=== PATIENT | female | born 1955 | race Caucasian/White ===

== ENCOUNTER 2022-08-19 12:37 | Outpatient (CLI) | payer OTHER, SELFPAY ==
--- NOTE | ~2022-08-19 | XR_ITS ---
EXAMINATION: XR chest 2V 08/19/2022 14:25 INDICATION: COPD exacerbation PROCEDURE: 2 view chest COMPARISON: No prior studies for comparison. FINDINGS: The lungs are clear. The cardiomediastinal silhouette is within normal limits. There are no pleural effusions. There is no pneumothorax suspected. There is moderate lower thoracic spondylo sis with accentuated kyphosis. IMPRESSION: 1: NO ACUTE CARDIOPULMONARY DISEASE. Reviewed, dictated and finalized at location A.
--- NOTE | ~2022-08-19 | XR_ITS ---
EXAMINATION: XR lumbar spine min 4V DATE: 08/19/2022 14:25 INDICATION: Chronic low back pain. TECHNIQUE: 5 views of lumbar spine were obtained. COMPARISON: None. FINDINGS: There is 10 degrees levoscoliosis of lumbar spine. There is 4 mm retrolisthesis of L2 on L3 . Vertebral body heights are normal. There is severely decreased disc height at L1-L2 and L2-L3. Ther e is multilevel mild to moderate facet joint osteoarthritis. IMPRESSION: 1. Severe lumbar spondylosis. 2. Lumbar levoscoliosis. Reviewed, dictated and finalized at location B.
[2022-08-19 14:28] LABS: Basophils Percent Auto 0.4 % (0.2-1.2); Eosinophils Absolute Auto 0.1 K/mm3 (0-0.3); Hematocrit 45.9 % (37.0-47.0); Hemoglobin 15.2 g/dL (12.0-15.0); Immature Granulocyte Absolute 0.03 K/mm3 (0.00-0.031); Immature Granulocyte Percent A 0.3 % (0-0.5); Lymphocytes Absolute Auto 2.65 K/mm3 (0.9-3.2); Lymphocytes Percent Auto 29.4 % (18.3-44.2); Mean Corpuscular HGB Conc 33.1 g/dl (32-36); Mean Corpuscular Hemoglobin 29.3 pg (26-34); Mean Corpuscular Volume 88.4 fl (80-100); Mean Platelet Volume 9.4 fl (7.4-10.4); Monocytes Absolute Auto 0.4 K/mm3 (0.1-0.6); Monocytes Percent Auto 4.3 % (2.6-8.5); Neutrophils Absolute Auto 5.8 K/mm3 (1.3-6.7); Neutrophils Percent Auto 64.6 % (45.5-73.1); Platelet Count Result 323 k/mm3 (150-375); Red Blood Count 5.19 M/mm3 (4.2-5.4); Red Cell Distribution Width 12.7 % (11.5-14.5)
[2022-08-19 14:47] LABS: Alanine Aminotransferase 10 U/L (6-35); Alkaline Phosphatase 97 U/L (38-126); Anion Gap 13 mmol/L (8-16); Aspartate Amino Transferase 23 U/L (14-36); Bilirubin,Total 0.5 mg/dL (0.2-1.3); Blood Urea Nitrogen 8 mg/dL (7-17); Calcium 10.1 mg/dL (8.4-10.2); Carbon Dioxide 30 mmol/L (22-30); Chloride 99 mmol/L (98-107); Cholesterol 232 mg/dL (0-200); Estimated Glomerular Filt Rate 50; Glucose 115 mg/dL (65-110); HDL Direct 52 mg/dL; Phosphorus 4.1 mg/dL (2.5-4.5); Potassium 3.9 mmol/L (3.4-5.0); Sodium 142 mmol/L (137-145); Triglycerides 312 mg/dL (<150)
[2022-08-19 14:58] LABS: LDL Cholesterol Direct 103 mg/dL
[2022-08-19 15:11] LABS: Free T4 Free Thyroxine 1.05 ng/mL (0.78-2.19); Vitamin D 25 Hydroxy 46.7 ng/mL
--- NOTE | 2022-08-19 15:45 | WPDPFTINT ---
PFT Procedure Performed PFT Procedure Performed Plethysmography (Lung Vol) Diffusing Cap (DLCO) Flow Vol Loop Spirometry w/o Bronchodil PFT Interpretation This is a pulmonary function test with spirometry, plethysmography and diffusing capacity. The test was performed and results interpreted in accordance with the 2019 and 2005 ATS/ERS Task Force guidelines respectively using the Global Lung Function Initiative-2012 reference equations. Patient demonstrated good effort and cooperation. Reproducibility criteria were met. The quality of the spirometry maneuver was Grade A. Findings: Spirometry: There is decreased maximal expiratory airflow at all lung volumes with concave expiratory flow tracing. The contour the inspiratory flow tracing is normal. The FVC is 2.03 L, 81% predicted. The FEV1 is 1.26 L, 64% predicted. The FEV1: FVC ratio is 62%. Plethysmography: The total lung capacity is 5.61 L, 130% predicted. The functional residual capacity is 3.97 L, 163% predicted. The residual volume is 3.57 L, 194% predicted. Diffusing capacity: The diffusing capacity unadjusted for hemoglobin and carboxyhemoglobin is 12.7, 67% predicted. The diffusing capacity adjusted for alveolar volume is 3.84, 84% predicted. Impression: There is a modeerate obstructive abnormality. The increase in residual volume is consistent with air trapping from an obstructive abnormality. Hyperinflation is present as demonstrated by the increase in functional residual capacity and total lung capacity and is consistent with an obstructive abnormality. The diffusing capacity is normal. There are no prior studies for comparison
== END 2022-08-19 12:38 | disposition home or self-care (01) ==
PROVIDERS: PCP Internal Medicine; Visit Provider Internal Medicine
DX: J44.9 Chronic obstructive pulmonary disease, unspecified (principal); E78.5 Hyperlipidemia, unspecified; E55.9 Vitamin D deficiency, unspecified; M47.896 Other spondylosis, lumbar region; R94.2 Abnormal results of pulmonary function studies
CPT/HCPCS: 36415; 71046; 72110; 80061; 80069; 80076; 82306; 84439; 84443; 85025; 94375; 94726; 94729

== ENCOUNTER 2022-08-29 09:54 | Outpatient (CLI) | payer OTHER, SELFPAY ==
--- NOTE | 2022-08-29 | EST_ITS ---
Patient Info Name: Adriane Bermudez Age: 67 years : 1955 Gender: Female Ht: 51 in Wt: 135 lbs BSA: 1.53 m2 HR: 59 bpm BP: 188 / 75 mmHg Heart Rhythm: Sinus Rhythm Exam Date: 08/29/2022 11:27 AM Exam Location: [facility] Stress Patient Status: Outpatient Admit Date: 08/29/2022 Staff Ordering Physician: Abhi Ramos MD Attending Provider: Abhi Ramos MD Exercise Technologist: Caterina Serra, CT Nurse: YOSEF CRAIG Exam Type: CA stress josh w NM Study Info Indications R07.89 - Other chest pain A regadenoson stress test was performed. Summary 1. Sinus rhythm with left axis deviation and poor R-wave progression. 2. No changes noted following Lexiscan injection. 3. Clinically and electrocardiographically unremarkable Lexiscan stress test. 4. Myocardial perfusion imaging study to be dictated by the Radiology Department. Protocol: Lexiscan Stress ECG Details Stage: REST Duration (min): 2 min : 17 sec HR (bpm): 63 SBP (mmHg): 188 DBP (mmHg): 75 Stage: REST Duration (min): 10 min : 27 sec HR (bpm): 62 SBP (mmHg): 188 DBP (mmHg): 75 Stage: STAGE 1 Duration (min): 0 min : 59 sec HR (bpm): 78 SBP (mmHg): 188 DBP (mmHg): 75 Stage: RECOVERY Duration (min): 1 min : 0 sec HR (bpm): 99 SBP (mmHg): 203 DBP (mmHg): 79 Stage: RECOVERY Duration (min): 2 min : 0 sec HR (bpm): 93 SBP (mmHg): 203 DBP (mmHg): 79 Stage: RECOVERY Duration (min): 3 min : 0 sec HR (bpm): 92 SBP (mmHg): 180 DBP (mmHg): 85 Stage: RECOVERY Duration (min): 3 min : 40 sec HR (bpm): 85 SBP (mmHg): 180 DBP (mmHg): 85 Rest HR: 62 bpm Peak HR: 102 bpm Rest Sys BP: 188 mmHg Peak Sys BP: 203 mmHg Max Pred HR: 155 bpm % Max Pred HR: 66 % Target HR: 132 bpm Max RPP: 20,706 bpm*mmHg Total Time: 1 min : 0 sec Rest Emerson BP: 75 mmHg Peak Emerson BP: 79 mmHg Total Dose: 0.4 mg Resting ECG Sinus rhythm with left axis deviation and poor R-wave progression. Stress ECG No changes noted following Lexiscan injection. Report Signatures
--- NOTE | ~2022-08-29 | NM_ITS ---
EXAMINATION: NM josh stress w perfusion DATE: 08/29/2022 12:57 INDICATION: Chest pain TECHNIQUE: Rest images were obtained following intravenous administration of 9.6 mCi Tc99m tetrofosmi n (Myoview). The patient was infused intravenously with Lexiscan (Regadenoson). Then, 29.6 mCi Tc99m tetrofosmin (Myoview) was administered intravenously, and stress images were obtained. Data was recon structed into short axis and horizontal and vertical long axis SPECT images. Gated SPECT images were also obtained. COMPARISON: None. FINDINGS: There is no definite reversible or fixed perfusion abnormality to suggest ischemia or infar ction. There is normal left ventricular chamber size, wall motion and ejection fraction. Left ventr icular ejection fraction measures >70%. IMPRESSION: 1. Normal myocardial perfusion at rest and during stress. 2. Left ventricular ejection fraction measuring >70%. Reviewed, dictated and finalized at location A.
== END 2022-08-29 09:55 | disposition home or self-care (01) ==
PROVIDERS: PCP Internal Medicine; Visit Provider Internal Medicine
DX: R07.9 Chest pain, unspecified (principal)
CPT/HCPCS: 78452; 93017; A9502; J2785

== ENCOUNTER 2022-08-30 20:24 | Inpatient (IN) | payer OTHER, SELFPAY ==
[2022-08-30] VITALS (7 sets, daily range): BP systolic 113–148; BP diastolic 59–88; PULSE 63–74; RESP 16–20; TEMP 36.6; O2SAT 93–100; BMI 25.9
--- NOTE | ~2022-08-30 | XR_ITS ---
EXAMINATION: XR chest 2V Exam Date/Time: 08/30/2022 20:52 CDT HISTORY: MIDLINE chest pain, COLD SWEATS Comparison: 08/19/2022. RESULT: Lines, tubes, and devices: None. Lungs and pleura: Clear. Cardiomediastinal silhouette: Stable. Other: No acute osseous or upper abdominal finding. IMPRESSION: No acute cardiopulmonary process. Reviewed, dictated and finalized at location K.
--- NOTE | 2022-08-30 20:28 | ECG_ITS ---
Measurements Intervals [place] Rate: 58 P: 63 CO: 177 QRS: -45 QRSD: 100 T: -40 QT: 466 QTc: 460 Interpretive Statements SINUS BRADYCARDIA POSSIBLE LEFT ATRIAL ENLARGEMENT [-0.1mV P WAVE IN V1/V2] LEFT ANTERIOR FASCICULAR BLOCK [QRS AXIS <= -45, QR IN I, RS IN II] POSSIBLE LEFT VENTRICULAR HYPERTROPHY [VOLTAGE CRITERIA PLUS LAE OR QRS WIDENING] MINIMAL ST DEPRESSION [0.025+ mV ST DEPRESSION] INFERIOR T-WAVE ABNORMALITY, CONSISTENT WITH ISCHEMIA ABNORMAL ECG NO PREVIOUS ECG AVAILABLE FOR COMPARISON Electronically Signed On 08-31-2022 10:19:52 CDT by Beau Sanchez M.D.
[2022-08-30 20:52] LABS: Basophils Percent Auto 0.5 % (0.2-1.2); Eosinophils Absolute Auto 0.1 K/mm3 (0-0.3); Hematocrit 38.6 % (37.0-47.0); Hemoglobin 12.7 g/dL (12.0-15.0); Immature Granulocyte Absolute 0.04 K/mm3 (0.00-0.031); Immature Granulocyte Percent A 0.5 % (0-0.5); Lymphocytes Percent Auto 25.2 % (18.3-44.2); Mean Corpuscular HGB Conc 32.9 g/dl (32-36); Mean Corpuscular Volume 91.3 fl (80-100); Mean Platelet Volume 9.4 fl (7.4-10.4); Monocytes Absolute Auto 0.5 K/mm3 (0.1-0.6); Monocytes Percent Auto 5.8 % (2.6-8.5); Neutrophils Absolute Auto 5.9 K/mm3 (1.3-6.7); Platelet Count Result 232 k/mm3 (150-375); Red Blood Count 4.23 M/mm3 (4.2-5.4); Red Cell Distribution Width 13.4 % (11.5-14.5); White Blood Count 8.7 K/mm3 (4.5-10.0)
--- NOTE | 2022-08-30 20:56 | ED.CHESTPAIN ---
HPI - Chest Pain General Chief Complaint: Chest Pain Stated Complaint: CP S/P TAKING MUCINEX Time Seen by Provider: 08/30/22 20:36 History of Present Illness HPI narrative: This is a 67-year-old female with past medical history of COPD and hyperlipidemia who was brought in by EMS with complaints of chest pain. The patient states approximately 2 hours prior to arrival, she was lying down, took a tablet of Mucinex and felt almost immediate onset pressure-like substernal chest pain lasting for about an hour and 45 minutes, associated with nausea. Patient states she has not felt the pain like this before. She denies aggravating or alleviating factors. She states the pain has now completely resolved. She states she underwent a stress test yesterday but is not sure of the results she has no other complaints today Related Data Home Medications Medication Instructions Recorded Confirmed fluoxetine 20 mg capsule mg 08/30/22 fluticasone 250 mcg-salmeterol 50 inhalation 08/30/22 mcg/dose blistr powdr for inhalation (Advair Diskus) glipizide 5 mg tablet mg 08/30/22 glipizide 5 mg tablet mg 08/30/22 hydroxyzine HCl 25 mg tablet mg 08/30/22 lamotrigine 150 mg tablet mg 08/30/22 trazodone 100 mg tablet mg 08/30/22 valbenazine 40 mg capsule mg 08/30/22 (Ingrezza) Allergies Allergy/AdvReac Type Severity Reaction Status Date / Time No Known Allergies Allergy Verified 08/30/22 20:47 Review of Systems Review of Systems: CONSTITUTIONAL: Denies fever, chills, or sweats. EYES: Denies visual changes, redness, or discharge. ENT: Denies rhinorrhea, congestion, sore throat, or otalgia. CARDIOVASCULAR: Chest pain (now resolved) denies palpitations, or edema. RESPIRATORY: Denies cough or dyspnea. GASTROINTESTINAL: Denies abdominal pain, nausea, vomiting, or diarrhea. GENITOURINARY: Denies dysuria or hematuria. SKIN: Denies rash or itching. MUSCULOSKELETAL: Denies back pain, joint pain, or myalgia. NEUROLOGIC: Denies headache, numbness, dizziness, or weakness. PSYCHIATRIC: Denies anxiety or depression. [facility] Past Medical History Medical History (Updated 08/30/22 @ 23:27 by Lionel Kearnye MD) COPD (chronic obstructive pulmonary disease) Hyperlipidemia Social History Social History (Updated 08/30/22 @ 23:26 by Lionel Kearney MD) Smoking status: Current every day smoker Alcohol intake: never Substance use: never Exam Narrative: GENERAL: Well-appearing, well-nourished, and in no acute distress. HEAD: Normocephalic, atraumatic. EYES: PERRLA and EOMI. ENT: Nares clear, no rhinorrhea or epistaxis. Mucous membranes moist. Oropharynx without tonsillar hypertrophy exudate or other lesions. Bilateral TMs pearly quintanilla nonbulging NECK: Supple. No adenopathy or masses. No carotid bruits or JVD CHEST: Bilateral expiratory wheeze with good aeration. No respiratory distress. No rales or rhonchi HEART: Regular rate and rhythm. No murmur heard. Normal peripheral pulses. ABDOMEN: Soft, nontender, nondistended, normal active bowel sounds. EXTREMITIES: Normal range of motion. No edema. SKIN: Warm, dry, no rash. NEURO: No focal deficits. Alert and oriented x3. PSYCH: Normal mood and affect. Course Course Emergency Course: 21:00 - On review of documentation, the patient underwent a Lexiscan stress test yesterday without ischemic changes. 21:30 - Troponin elevated to 0.229. Chemistries otherwise demonstrated creatinine of 1.3 with a baseline of 1.1. Chest x-ray unremarkable. 21:35 - Discussed patient with Dr. Haro (chainsaw mechanic) who advises treatment with 1mg/kg Lovenox, keep NPO overnight with plan to evaluate in the morning and potentially take to the clinical laboratory aide. 22:05 - Discussed with Dr. Cruz who accepts admission. Vital Signs Vital signs: Vital Signs Temperature 97.8 F 08/30/22 20:28 Pulse Rate 65 08/30/22 20:28 Respiratory Rate 18 08/30/22 20:28 Blood Pressure 148/88 H 08/30/22 20:28 Puls
[2022-08-30 21:02] LABS: Alanine Aminotransferase 12 U/L (6-35); Albumin Level 4.2 g/dL (3.5-5.1); Alkaline Phosphatase 86 U/L (38-126); Anion Gap 10 mmol/L (8-16); Aspartate Amino Transferase 25 U/L (14-36); Bilirubin,Total 0.5 mg/dL (0.2-1.3); Blood Urea Nitrogen 11 mg/dL (7-17); Calcium 8.8 mg/dL (8.4-10.2); Carbon Dioxide 26 mmol/L (22-30); Chloride 102 mmol/L (98-107); Estimated Glomerular Filt Rate 41; Glucose 132 mg/dL (65-110); Lipase 120 U/L (23-300); Potassium 3.4 mmol/L (3.4-5.0); Sodium 138 mmol/L (137-145)
[2022-08-30 21:05] LABS: INR 1.1; Prothrombin Time 13.3 Seconds (11.1-14.7)
[2022-08-30 21:06] LABS: Partial Thromboplastin Time 29.1 SECONDS (22.3-36.8)
[2022-08-30] MEDS: ALBUTEROL SULFATE NEB 2.5 MG/3 ML INH 5 MG INHALATION (21:14)
[2022-08-30 21:19] LABS: Troponin I 0.229 ng/mL (0.000-0.034)
[2022-08-30 21:34] LABS: SARS-CoV-2 RNA PCR Negative
[2022-08-30] MEDS: ENOXAPARIN 80 MG/0.8 ML SYRINGE 66 MG SUB-Q (22:27)
[2022-08-31] VITALS (44 sets, daily range): BP systolic 134–194; BP diastolic 55–108; PULSE 43–81; RESP 15–26; TEMP 35.8–37; O2SAT 94–100
--- NOTE | 2022-08-31 00:32 | ADMGEN ---
This patient, Adriane Bermudez, was admitted to IMU Room 201-01 08/31/22 at 0005. Patient/family oriented to hospital policies and general routines including ID bracelet, bed and alarms, visiting hours, pain management, procedures, bathroom and other care routines, personal items, smoking policy, room service/diet, and visiting hours. Information on how to activate the Rapid Response Team has been discussed. Patient/Family are encouraged to report perceived risks to care and to ask questions if they do not understand what they are told or what they should do.
[2022-08-31 00:58] LABS: Troponin I 0.367 ng/mL (0.000-0.034)
[2022-08-31 03:07] LABS: Troponin I 0.675 ng/mL (0.000-0.034)
--- NOTE | 2022-08-31 04:17 | PM.IMHP ---
H&P: HPI History of Present Illness Date/Time: 08/31/22 02:30 Chief Complaint: Chest pain Narrative: 67-year-old female with past medical history of bipolar disorder, type 2 diabetes mellitus, hypertension, chronic kidney disease stage 3, chronic tobacco use and coronary artery disease status post 2 prior cardiac catheterizations with 2 separate stents placed who presented to the ER with chest pain. Patient reports that she is being evaluated as outpatient due to persistent cough and shortness of breath for the last 6 months. She had PFTs as outpatient which demonstrated moderate obstructive disease in July. She had a Lexiscan stress test performed 08/29/2022 that was negative for evidence of ischemia. On 08/30/2022, she reports that she was having difficulty with coughing and chest congestion so she took a Mucinex. Shortly thereafter while she was watching TV she began having mid chest pain. She reports that the pain was pressure-like in nature and substernal. It radiated to her back and up to her left jaw. It was a come by some nausea but no vomiting. It lasted 1-2 hours. It was associated with diaphoresis and nausea. She reported that pain was partially relieved with nitro given by EMS and was completely relieved after nitropaste was placed. She also reports associated increased fatigue for the last week. She reports having some episodes of paroxysmal nocturnal dyspnea this week as well but denies significant orthopnea. Does have a history of coronary artery disease and had cardiac stents placed at [facility] during 2 separate cardiac catheterizations over 10 years ago. She states that those stents were placed due to positive stress test in that she has never actually had chest pain or non-STEMI previously. She has never had pain like this before. She has not had any recent fevers or chills. she does not take any aspirin. She is not on blood thinners. She reports that her hemoglobin A1c was 7 at her last lab check with her primary care physician. Review of Systems Review of Systems: 12 systems were reviewed with pertinent positives and negatives per HPI. Except as documented in the HPI, all other systems were reviewed and are negative. [facility] Past Medical History Medical History (Updated 08/31/22 @ 05:40 by Roslyn Cruz DO) Anxiety Bipolar disorder (manic depression) Chronic kidney disease, stage 3b Associated with diabetes Continuous tobacco abuse COPD (chronic obstructive pulmonary disease) PFT 08/2022: Moderate obstructive abnormality with evidence of air trapping Coronary artery disease Diabetic peripheral neuropathy Diverticulitis Fibromyalgia Gout Hyperlipidemia Scoliosis Type 2 diabetes mellitus Vitamin D deficiency Surgical History Surgical History (Updated 08/31/22 @ 05:27 by Roslyn Cruz DO) History of appendectomy History of colonoscopy with polypectomy History of hysterectomy for cancer At age 20 for ovarian cancer History of tonsillectomy Family History Family History (Updated 08/31/22 @ 05:30 by Roslyn Cruz DO) Mother Lung cancer Father , At age 78 Acute myocardial infarction, Onset Age: 38 Sibling Intracranial aneurysm Sibling , Age 54 Acute myocardial infarction Social History Social History (Updated 08/31/22 @ 05:33 by Roslyn Cruz DO) Social History: She is currently from her spouse and lives alone. 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 she has 1 biologic daughter and 4 step children. She has smoked as much as 3 packs of cigarettes per day but has cut back to 1.5 packs per day for the last 3 months. She smokes marijuana nightly. She denies any alcohol use. Code status: Full code Primary care physician: Dr. Abhi Ramos Smoking packs per day: 3 Smoking cigarettes per day: 60.0 Years smoked: 56 Smoking pack-years: 168.00 Smoking status: Current every day smoker Tobacco type: cig
--- NOTE | 2022-08-31 08:42 | PM.CNCAR ---
Assessment and Plan Assessment and plan (1) Non-STEMI (non-ST elevated myocardial infarction): Code(s): I21.4 - Non-ST elevation (NSTEMI) myocardial infarction Status: Acute Plan This is a 67-year-old lady with smoking dyslipidemia and a previous history of coronary stenting, presents to the hospital with some chest pain last evening that resolved in a self-limited fashion. She has had a modest troponin rise and inferior T-wave inversions. We appear to have the diagnosis of acute coronary syndrome. I will recommend follow-up coronary angiography and will anticipate performing that procedure later this morning. Further recommendations are will be pending completion of that exam. Jorgito Pfeiffer MD [facility] History of Present Illness History of Present Illness Consult date/time: 08/31/22 08:42 Reason For Visit: Chest Pain Narrative: This is a 67-year-old woman who I am seeing at the request of the hospitalist this morning because of chest pain and evidence indicating of as acute coronary syndrome. The patient is unknown to me prior to this encounter and is not really been admitted [facility] in the past that I can tell. In any event she was in her home last evening simply sitting in a chair when she started to experience some chest pain she describes it as a dull aching then followed by a pressure-like sensation in the center of the chest that radiated up into her neck area. The symptom was accommodated by some shortness of breath and nausea. She states she sat down to relax and laid back in the symptoms persisted after about 20-30 minutes she called EMS or her at least her and I believe she was brought to the emergency room here at [facility] at her request even though she lives in [place]. The patient was seen in the emergency room evaluated and admitted to IMU. She has modestly elevated troponin levels. Her electrocardiogram did not show any acute current of injury however she does have some inferior T-wave inversions. We have no old ECGs here at [place] for comparison. In any event she feels well this morning and denies any complaints. She appears to have a history of coronary artery disease she states that she was cared for by wine manager in the hospital [place] about 10 years ago and underwent angiography and stenting of 2 her coronary arteries. We have none of those records. For some reason she states no follow-up with the wine manager was performed after that intervention. Presumably she did not show up for appointments or something like that. In any event she follows with a local PCP for her primary care she has a history of diabetes dyslipidemia and history of COPD with longstanding/ongoing cigarette smoking. She takes atorvastatin and no other medications that are untreated pertinent to her coronary artery disease. Review of Systems Constitutional: Constitutional: Reports no additional constitutional complaints Eyes: Eyes: Reports no additional eye complaints ENT: Reports system reviewed and no additional complaints, except as documented Cardiovascular: Cardiovascular: Reports as per HPI Respiratory: Respiratory: Reports dyspnea on exertion Gastrointestinal: Gastrointestinal: Reports no additional gastrointestinal complaints Musculoskeletal: Musculoskeletal: Reports back pain Integumentary/Breasts: Skin/Breast: Reports system reviewed and no additional complaints, except as docu Endocrine: Endocrine: Reports no additional endocrine complaints Hematologic/Lymphatic: Hematologic/Lymphatic: Reports no additional hematologic/lymphatic complaints Allergic/Immunologic: Allergic/Immunologic: Reports no additional allergic/immunologic complaints [facility] Past Medical History Medical History (Updated 08/31/22 @ 05:40 by Roslyn Cruz DO) Anxiety Bipolar disorder (manic depression) Chronic kidney disease, stage 3b Associated with diabetes 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
--- NOTE | 2022-08-31 08:48 | WPDMODSED ---
Moderate Sedation Note-Pt Data Patient Data Diagnosis: Acute coronary syndrome Coronary artery disease with previous PCI Dyslipidemia Ongoing smoking Diabetes Present Complaint: No complaints this morning Procedure to be performed/Plan: Left heart catheterization Allergies Allergy/AdvReac Type Severity Reaction Status Date / Time No Known Allergies Allergy Verified 08/30/22 20:47 Home Medications Medication Instructions Recorded Confirmed Type fluoxetine 20 mg capsule 20 mg PO DAILY 08/30/22 08/31/22 History fluticasone 250 mcg-salmeterol 50 1 inh inhalation Q12H 08/30/22 08/31/22 History mcg/dose blistr powdr for inhalation (Advair Diskus) glipizide 5 mg tablet 5 mg PO DAILY 08/30/22 08/31/22 History hydroxyzine HCl 25 mg tablet 25 mg PO DAILY 08/30/22 08/31/22 History lamotrigine 150 mg tablet 150 mg PO Q12H 08/30/22 08/31/22 History trazodone 100 mg tablet 100 mg PO HS 08/30/22 08/31/22 History valbenazine 40 mg capsule 40 mg PO HS 08/30/22 08/31/22 History (Ingrezza) acetaminophen 500 mg tablet 1,000 mg PO Q12H 08/31/22 08/31/22 History albuterol sulfate 90 mcg/actuation 2 puff inhalation Q6H PRN 08/31/22 08/31/22 History aerosol inhaler (Ventolin HFA) Shortness Of Breath aripiprazole 10 mg tablet 10 mg PO DAILY 08/31/22 08/31/22 History atorvastatin 40 mg tablet 40 mg PO DAILY 08/31/22 08/31/22 History cetirizine 10 mg tablet 10 mg PO DAILY 08/31/22 08/31/22 History ergocalciferol (vitamin D2) 1,250 50,000 unit PO WEEKLY 08/31/22 08/31/22 History mcg (50,000 unit) capsule (Vitamin D2) famotidine 40 mg tablet 40 mg PO DAILY 08/31/22 08/31/22 History hydroxyzine HCl 25 mg tablet 50 mg PO HS 08/31/22 08/31/22 History ipratropium 0.5 mg-albuterol 3 mg 3 ml inhalation DAILY 08/31/22 08/31/22 History (2.5 mg base)/3 mL nebulization soln nicotine 21 mg/24 hr daily 21 mg transdermal DAILY 08/31/22 08/31/22 History transdermal patch Current Medications: Active Medications Acetaminophen (Acetaminophen 500 Mg Tablet) 1,000 mg PO Q12HR [facility] Albuterol (Albuterol Sulfate Neb 2.5 Mg/0.5 Ml Inh) 2.5 mg INHALATION Q6HRT PRN PRN Reason: Shortness of breath Aripiprazole (Aripiprazole 10 Mg Tablet) 10 mg PO DAILY [facility] Atorvastatin Calcium (Atorvastatin 40 Mg Tablet) 40 mg PO DAILY [facility] Famotidine (Famotidine 20 Mg Tablet) 40 mg PO DAILY [facility] Fluoxetine HCl (Fluoxetine Hcl 20 Mg Capsule) 20 mg PO DAILY [facility] Glipizide (Glipizide 5 Mg Tablet) 5 mg PO DAILY@0800 [facility] Hydroxyzine HCl (Hydroxyzine Hcl 25 Mg Tablet) 25 mg PO DAILY [facility] Hydroxyzine HCl (Hydroxyzine Hcl 25 Mg Tablet) 50 mg PO HS [facility] Ipratropium Broad Top (Ipratropium Br 0.02% Inh Soln 0.5 Mg/2.5 Ml Vial) 0.5 mg INHALATION Q6HRT PRN PRN Reason: Shortness of breath Lamotrigine (Lamotrigine 50 Mg Tablet) 150 mg PO Q12HR [facility] Loratadine (Loratadine 10 Mg Tablet) 10 mg PO QAM [facility] Miscellaneous Information (Valbenazine- Nonformulary. Please [facility] Home Supply If Possible.) 0 each XX CLARIFY [facility] Stop: 09/30/22 06:09 Morphine Sulfate (Morphine Sulfate (*Crx) 4 Mg/Ml Inj) 4 mg IV PUSH Q2H PRN PRN Reason: Pain Rated 7-10 Non-Formulary Medication (Valbenazine [Ingrezza]) 40 mg PO HS [facility] Stop: 09/30/22 20:59 Fluticasone/Salmeterol (Fluticasone/Salmeterol 115-21 Mcg Inhaler 1 Puff) 2 puff INHALATION Q12HRT [facility] Trazodone HCl (Trazodone Hcl 50 Mg Tablet) 100 mg PO HS [facility] Sedation/Anesthesia: No previous sedation/anesthesia problems (including family history). [facility] Past Medical History Medical History (Updated 08/31/22 @ 05:40 by Roslyn Cruz DO) Anxiety Bipolar disorder (manic depression) Chronic kidney disease, stage 3b Associated with diabetes Continuous tobacco abuse COPD (chronic obstructive pulmonary disease) PFT 08/2022: Moderate obstructive abnormality with evidence of air trapping Coronary artery disease Diabetic peripheral neuropathy Diverticulitis Fibromyalgia Gout Hyperlipidemia Scoliosis Type 2 diabetes melli
--- NOTE | 2022-08-31 09:05 | PM.IMPN ---
Progress Note: A&P Assessment and Plan (1) Non-STEMI (non-ST elevated myocardial infarction): Code(s): I21.4 - Non-ST elevation (NSTEMI) myocardial infarction Status: Acute Assessment and Plan: Patient received full-dose aspirin and 1 dose of therapeutic Lovenox in the ER. She had nitropaste applied. Pain completely resolved after application nitropaste. Serial troponins were trended and continue to rise upward. Cardiology has been consulted. The patient is NPO for possible cardiac catheterization. (2) COPD (chronic obstructive pulmonary disease): Qualifiers: COPD type: unspecified COPD Qualified Code(s): J44.9 - Chronic obstructive pulmonary disease, unspecified Code(s): J44.9 - Chronic obstructive pulmonary disease, unspecified Status: Acute Assessment and Plan: No evidence of acute exacerbation. The importance of smoking cessation was discussed in great detail given the patient's history of COPD and and now her having recurrent coronary artery disease with ischemia. Will place patient on p.r.n. albuterol and continue her home Advair. (3) Continuous tobacco abuse: Code(s): Z72.0 - Tobacco use Status: Acute Assessment and Plan: The importance of tobacco cessation was discussed with patient. She states that she has cut down to 1.5 packs per day for the last 3 months. I encouraged her to make more significant efforts to quit smoking. She verbalized understanding. Plan Patient has been admitted as observation status. Subjective Date/time seen: 08/31/22 09:05 Exam Narrative: N/A Objective Data Vital Signs Vital Signs: Vital Signs - 24 hr 08/30/22 20:28 08/30/22 20:42 08/30/22 21:16 Temperature 36.6 C Pulse Rate 65 70 Respiratory Rate 18 20 Blood Pressure 148/88 H Pulse Oximetry 95 Oxygen Delivery Room Air Room Air Fraction of Inspired Oxygen 08/30/22 21:19 08/30/22 21:27 08/30/22 22:32 Temperature Pulse Rate 66 74 Respiratory Rate 17 18 Blood Pressure 120/64 Pulse Oximetry 96 93 Oxygen Delivery Room Air Fraction of Inspired Oxygen 21 08/30/22 23:32 08/30/22 23:45 08/31/22 00:05 Temperature 36.6 C Pulse Rate 72 63 Respiratory Rate 16 16 Blood Pressure 113/72 124/59 L Pulse Oximetry 100 95 Oxygen Delivery Room Air Fraction of Inspired Oxygen 08/31/22 02:00 08/31/22 00:05 08/31/22 01:25 Temperature Pulse Rate 61 76 Respiratory Rate Blood Pressure Pulse Oximetry 95 Oxygen Delivery Room Air Fraction of Inspired Oxygen 08/31/22 04:00 08/31/22 04:00 08/31/22 04:00 Temperature 36.6 C Pulse Rate 59 L 70 Respiratory Rate 16 Blood Pressure 152/72 H Pulse Oximetry 96 Oxygen Delivery Room Air Fraction of Inspired Oxygen 08/31/22 06:00 08/31/22 08:14 Temperature 35.8 C L Pulse Rate 60 55 L Respiratory Rate 18 Blood Pressure 159/55 H Pulse Oximetry 95 Oxygen Delivery Fraction of Inspired Oxygen Intake/Output Intake/Output: Intake & Output 08/28/22 08/29/22 08/30/22 08/31/22 23:59 23:59 23:59 23:59 Output Total 800 Balance -800 Meds/Results Medications: Active Medications Generic Name Dose Route Start Last Admin Trade Name Freq PRN Reason Stop Dose Admin Acetaminophen 1,000 mg 08/31/22 09:00 Acetaminophen 500 Mg Tablet PO Q12HR PEDRO Albuterol 2.5 mg 08/31/22 06:06 Albuterol Sulfate Neb 2.5 Mg/0.5 Ml Inh INHALATION Q6HRT PRN Shortness of breath Aripiprazole 10 mg 08/31/22 09:00 Aripiprazole 10 Mg Tablet PO DAILY PEDRO Atorvastatin Calcium 40 mg 08/31/22 09:00 Atorvastatin 40 Mg Tablet PO DAILY PEDRO Famotidine 40 mg 08/31/22 09:00 Famotidine 20 Mg Tablet PO DAILY PEDRO Fluoxetine HCl 20 mg 08/31/22 09:00 Fluoxetine Hcl 20 Mg Capsule PO DAILY PEDRO Glipizide 5 mg 08/31/22 08:00 Glipizide 5 Mg Tablet PO DAILY
[2022-08-31] MEDS: FAMOTIDINE 20 MG TABLET 40 MG PO (09:39)
[2022-08-31] MEDS: ATORVASTATIN 40 MG TABLET PO (09:39)
--- NOTE | 2022-08-31 10:18 | PC.NURSE ---
Patient transported to cardiac cardiac cath lab radiology technologist at 0942 by bed by cardiac cath lab radiology technologist team.
--- NOTE | 2022-08-31 10:54 | WPDCARDPROC ---
Cardiac Cath Procedure Note Date of procedure:: 08/31/22 Performing physician:: Jorgito Pfeiffer MD Indication:: acute coronary syndrome Brief clinical history:: this is a 67-year-old woman with coronary disease reports a history of previous PCI elsewhere more than 10 years ago. She has not had any recent cardiac follow-up. She enters this hospital with an episode of chest pain at rest that occurred yesterday at her home. There has been a modest troponin rise and electrocardiogram shows inferior T-wave inversions. In this setting another angiogram has been recommended. Risk factors include hypertension diabetes dyslipidemia and ongoing cigarette smoking Procedure Procedure performed:: left ventriculogram coronary angiogram attempted PCI of right coronary artery Sedation/Medication given:: fentanyl 50 mg Versed 2 mg case start time 10:09 a.m. case end time 10:48 a.m. sedation provided by Marylin Santos RN, trained observer Access site:: right femoral artery Estimated blood loss:: 25 cc Procedure note:: patient was brought to the cardiac catheterization lab in the postabsorptive state where the right femoral triangle was prepared and draped in the normal fashion. Anesthesia was provided with 1% lidocaine infiltrated locally. Using the modified Seldinger technique the 5 Afghan sheath was placed in the right femoral artery after this left heart catheterization was carried out. A 5 Afghan angled pigtail catheter was used to measure left-sided hemodynamics and to inject LV g in the 30 degree DEVI projection. Following this used a standard 5 Afghan FL4 catheter to engage and inject the left coronary artery and then a Afghan JR4 catheter to engage and inject the right coronary artery. The cineangiograms were then reviewed and PCI of the right coronary artery was recommended and attempted as described below. Prior to this the 5 Afghan sheath was changed over guidewire for a 6 Afghan sheath. She received intravenous Angiomax bolus and infusion for procedural anticoagulation. She received 325 mg of aspirin and 600 mg of clopidogrel. Following attempted PCI case was terminated the sheath was sutured into position she was taken to the holding area for post cath, attempted PCI recovery and sheath removal. 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 Findings:: Hemodynamics: Central aortic pressure was 148/60 left ventricle 148/5 end-diastolic pressure 20 there is no gradient on pullback across the aortic valve. Left ventricle: The LV is normal in size all segments contract appropriately the global ejection fraction I visually estimate to be 50-55%. No significant regional wall motion abnormalities were identified. The coronary arteries are significantly calcified fluoroscopically which is seen prior to any angiograms being performed the left main coronary artery is medium in caliber and is free of stenosis the left anterior descending is a medium caliber vessel proximally and a small caliber vessel distally terminates just before the apex. There is visible stent material in the proximal LAD. There are mild luminal irregularities in the anterior descending but no flow-limiting disease there is no significant InStent stenosis. Circumflex is a medium caliber vessel giving rise to the marginal branches the circumflex system is angiographically free of significant stenosis. The right coronary artery is a large caliber vessel proximally and dominant to the posterior circulation. There is severe disease in the 2nd portion of the right coronary artery with a 90% stenosis near the origin of the acute marginal branch and then a 99% stenosis about 25 mm distal to this. The more distal stenosis is in the juncture between the 2nd and 3rd portions of the RCA. There is mild diffuse disease in the distal right coronary and RPDA/RPL branches these lesions
--- NOTE | 2022-08-31 12:25 | PC.NURSE ---
Spoke with Stacey with [facility] transfer center at 1220. Patient to transfer to [facility]. No bed available at this time. Accepting physician .
[2022-08-31] MEDS: SODIUM CHLORIDE 0.9% IV 1,000 ML 125 ML IV CONT (12:47)
[2022-08-31] MEDS: hydrOXYzine HCL 25 MG TABLET PO (12:47)
[2022-08-31] MEDS: hydrALAZINE HCL 20 MG/ML VIAL 10 MG IV PUSH (13:16)
[2022-08-31] MEDS: NITROGLYCERIN SL 0.4 MG TABLET SUBLINGUAL (13:17)
[2022-08-31] MEDS: fentaNYL CITRATE INJ (*CRX) 100 MCG/2 ML VIAL 25 MCG IV PUSH (14:06)
--- NOTE | 2022-08-31 15:53 | PC.NURSE ---
Patient back to IMU department at 1545 from chest pain center.
--- NOTE | 2022-08-31 19:48 | PC.NURSE ---
[facility] flyer was given to patient.
[2022-08-31] MEDS: FLUTICASONE/SALMETEROL 115-21 MCG INHALER 1 PUFF 2 PUFF INHALATION (21:00)
[2022-08-31] MEDS: hydrOXYzine HCL 25 MG TABLET 50 MG PO (21:53)
[2022-08-31] MEDS: lamoTRIgine 50 MG TABLET 150 MG PO (21:54)
[2022-08-31] MEDS: traZODone HCL 50 MG TABLET 100 MG PO (21:55)
[2022-08-31] MEDS: ACETAMINOPHEN 500 MG TABLET 1000 MG PO (21:55)
[2022-09-01] VITALS (8 sets, daily range): BP systolic 125–127; BP diastolic 64–80; PULSE 48–98; RESP 16–20; TEMP 36–36.5; O2SAT 94–99
--- NOTE | 2022-09-01 02:22 | PC.NURSE ---
[facility] CALL CENTER CALLED WITH A BED FOR PATIENT. NUMBER [id number]. REPORT CALLED TO CRIC RN. ACCEPTING DR IS LEANNE.
[2022-09-01 05:12] LABS: Basophils Percent Auto 0.3 % (0.2-1.2); Eosinophils Absolute Auto 0.1 K/mm3 (0-0.3); Eosinophils Percent Auto 1.3 % (0-4.4); Hemoglobin 13.5 g/dL (12.0-15.0); Immature Granulocyte Absolute 0.02 K/mm3 (0.00-0.031); Immature Granulocyte Percent A 0.3 % (0-0.5); Lymphocytes Absolute Auto 2.08 K/mm3 (0.9-3.2); Mean Corpuscular HGB Conc 32.9 g/dl (32-36); Mean Corpuscular Hemoglobin 29.9 pg (26-34); Mean Corpuscular Volume 90.9 fl (80-100); Mean Platelet Volume 9.6 fl (7.4-10.4); Monocytes Absolute Auto 0.5 K/mm3 (0.1-0.6); Monocytes Percent Auto 7.3 % (2.6-8.5); Neutrophils Absolute Auto 3.7 K/mm3 (1.3-6.7); Neutrophils Percent Auto 57.8 % (45.5-73.1); Platelet Count Result 239 k/mm3 (150-375); Red Blood Count 4.51 M/mm3 (4.2-5.4); Red Cell Distribution Width 13.1 % (11.5-14.5); White Blood Count 6.3 K/mm3 (4.5-10.0)
[2022-09-01 05:27] LABS: Anion Gap 7 mmol/L (8-16); Blood Urea Nitrogen 9 mg/dL (7-17); Calcium 9.1 mg/dL (8.4-10.2); Carbon Dioxide 26 mmol/L (22-30); Chloride 108 mmol/L (98-107); Estimated Glomerular Filt Rate 50; Glucose 124 mg/dL (65-110); Sodium 141 mmol/L (137-145)
[2022-09-01] MEDS: FLUTICASONE/SALMETEROL 115-21 MCG INHALER 1 PUFF 2 PUFF INHALATION (08:19)
--- NOTE | 2022-09-01 15:42 | PM.TDS ---
Transfer Discharge Sum: Prov Provider Date of admission: 08/31/22 09:42 Primary care physician: Abhi Ramos MD Admitting clinician: Roslyn Cruz DO Consults: 08/30/22 22:04 Consult to Physician Routine Comment: Consulting Provider: Evelia Haro Reason for consultation: Troponin elevation Has provider been notified: Yes DS: Admitting Diagnosis Discharge Date 09/01/22 Admitting Diagnosis Chest Pain DS: Discharge Diagnosis Discharge Diagnosis (1) Non-STEMI (non-ST elevated myocardial infarction): Code(s): I21.4 - Non-ST elevation (NSTEMI) myocardial infarction Status: Acute Assessment and Plan: Patient received full-dose aspirin and 1 dose of therapeutic Lovenox in the ER. She had nitropaste applied. Pain completely resolved after application nitropaste. Serial troponins were trended and continue to rise upward. Cardiology has been consulted. Patient underwent cardiac catheterization and stent placement was attempted. No stent was placed. Cardiology recommended transfer to another facility for a higher level of care. Patient transferred overnight. (2) COPD (chronic obstructive pulmonary disease): Qualifiers: COPD type: unspecified COPD Qualified Code(s): J44.9 - Chronic obstructive pulmonary disease, unspecified Code(s): J44.9 - Chronic obstructive pulmonary disease, unspecified Status: Acute Assessment and Plan: No evidence of acute exacerbation. The importance of smoking cessation was discussed in great detail given the patient's history of COPD and and now her having recurrent coronary artery disease with ischemia. Will place patient on p.r.n. albuterol and continue her home Advair. (3) Continuous tobacco abuse: Code(s): Z72.0 - Tobacco use Status: Acute Assessment and Plan: The importance of tobacco cessation was discussed with patient. She states that she has cut down to 1.5 packs per day for the last 3 months. I encouraged her to make more significant efforts to quit smoking. She verbalized understanding. Transfer Discharge Sum: Med Medications Active and Home Medications: Home Medications fluoxetine 20 mg capsule 20 mg PO DAILY 08/30/22 [History Confirmed 08/31/22] fluticasone 250 mcg-salmeterol 50 mcg/dose blistr powdr for inhalation (Advair Diskus) 1 inh inhalation Q12H 08/30/22 [History Confirmed 08/31/22] glipizide 5 mg tablet 5 mg PO DAILY 08/30/22 [History Confirmed 08/31/22] hydroxyzine HCl 25 mg tablet 25 mg PO DAILY 08/30/22 [History Confirmed 08/31/22] lamotrigine 150 mg tablet 150 mg PO Q12H 08/30/22 [History Confirmed 08/31/22] trazodone 100 mg tablet 100 mg PO HS 08/30/22 [History Confirmed 08/31/22] valbenazine 40 mg capsule (Ingrezza) 40 mg PO HS 08/30/22 [History Confirmed 08/31/22] acetaminophen 500 mg tablet 1,000 mg PO Q12H 08/31/22 [History Confirmed 08/31/22] albuterol sulfate 90 mcg/actuation aerosol inhaler (Ventolin HFA) 2 puff inhalation Q6H PRN Shortness Of Breath 08/31/22 [History Confirmed 08/31/22] aripiprazole 10 mg tablet 10 mg PO DAILY 08/31/22 [History Confirmed 08/31/22] atorvastatin 40 mg tablet 40 mg PO DAILY 08/31/22 [History Confirmed 08/31/22] cetirizine 10 mg tablet 10 mg PO DAILY 08/31/22 [History Confirmed 08/31/22] ergocalciferol (vitamin D2) 1,250 mcg (50,000 unit) capsule (Vitamin D2) 50,000 unit PO WEEKLY 08/31/22 [History Confirmed 08/31/22] famotidine 40 mg tablet 40 mg PO DAILY 08/31/22 [History Confirmed 08/31/22] hydroxyzine HCl 25 mg tablet 50 mg PO HS 08/31/22 [History Confirmed 08/31/22] ipratropium 0.5 mg-albuterol 3 mg (2.5 mg base)/3 mL nebulization soln 3 ml inhalation DAILY 08/31/22 [History Confirmed 08/31/22] nicotine 21 mg/24 hr daily transdermal patch 21 mg transdermal DAILY 08/31/22 [History Confirmed 08/31/22] Transfer Discharge Sum: Hosp Hospital Course Hospital course: 67F with apast medical history of bipolar disorder, type
== END 2022-09-01 08:54 | disposition short-term general hospital (02) | DRG 174 ==
LOC: ANHED 22:59 → ANHIMU 23:25
PROVIDERS: Family Medicine; Specialist; Admitting Provider Internal Medicine; Emergency Provider Preventive Medicine Aerospace Medicine; PCP Internal Medicine; Visit Provider Internal Medicine
PROC: 4A023N7 Measurement of Cardiac Sampling and Pressure, Left Heart, Percutaneous Approach (ICD-10-PCS; CPT 93452; principal; 2022-08-31 10:00)
PROC: 02703ZZ Dilation of Coronary Artery, One Artery, Percutaneous Approach (ICD-10-PCS; CPT 92920; 2022-08-31 10:00)
DX: I21.4 Non-ST elevation (NSTEMI) myocardial infarction (principal); E11.22 Type 2 diabetes mellitus with diabetic chronic kidney disease; E11.42 Type 2 diabetes mellitus with diabetic polyneuropathy; J44.9 Chronic obstructive pulmonary disease, unspecified; N18.32 Chronic kidney disease, stage 3b; E78.5 Hyperlipidemia, unspecified; I12.9 Hypertensive chronic kidney disease with stage 1 through stage 4 chronic kidney disease, or unspecified chronic kidney disease; I25.10 Atherosclerotic heart disease of native coronary artery without angina pectoris; Z20.822 Contact with and (suspected) exposure to COVID-19; F17.210 Nicotine dependence, cigarettes, uncomplicated; F31.9 Bipolar disorder, unspecified; E55.9 Vitamin D deficiency, unspecified; M79.7 Fibromyalgia; M41.9 Scoliosis, unspecified; F41.9 Anxiety disorder, unspecified; Z90.710 Acquired absence of both cervix and uterus; Z95.5 Presence of coronary angioplasty implant and graft; Z90.49 Acquired absence of other specified parts of digestive tract; Z85.43 Personal history of malignant neoplasm of ovary
CPT/HCPCS: 36415; 71046; 80048; 80053; 83690; 84484; 85025; 85610; 85730; 92920; 93005; 93458; 94640; 96372; 99285; A9270; C1725; C1769; C1887; C1894; C9803; G0378; G0379; J0360; J0461; J0583; J1644; J1650; J2250; J3010; J7030; J7040; U0003; U0005

== ENCOUNTER 2023-01-30 13:30 | Outpatient (RCR) | payer OTHER, SELFPAY | END 2023-03-13 14:56 | disposition home or self-care (01) | LOC: ANHCPREHAB 13:30 | PROVIDERS: PCP Internal Medicine; Visit Provider Internal Medicine | DX: Z95.5 Presence of coronary angioplasty implant and graft (principal) | CPT/HCPCS: 93798 ==